=== PATIENT | male | born 1975 | race Two or more races ===

== ENCOUNTER 2017-02-24 10:35 | Emergency (ER) | payer MEDICAID, OTHER ==
[~2017-02-24] VITALS: Ht 165.1 cm; Wt 70.0 kg
[2017-02-24] MEDS ORDERED: ATOR10TA PO (10:39)
[2017-02-24] MEDS ORDERED: WARF2TAB55 PO (10:39)
[2017-02-24 12:00] VITALS: BP 128/70
== END 2017-02-24 12:01 | disposition home or self-care (01) ==
LOC: ER 10:49
DX: H53.2 Diplopia (principal); H53.8 Other visual disturbances; E78.00 Pure hypercholesterolemia, unspecified; I10 Essential (primary) hypertension; I25.2 Old myocardial infarction; Z95.2 Presence of prosthetic heart valve; Z79.01 Long term (current) use of anticoagulants
CPT/HCPCS: 99283

== ENCOUNTER 2017-04-12 16:43 | Emergency (ER) | payer MEDICAID ==
[~2017-04-12] VITALS: Ht 160 cm; Wt 91.0 kg
[~2017-04-12 16:43] MED LIST: ATOR10TA PO; WARF2TAB55 PO
[2017-04-12 21:55] LABS: BASOPHILS % 0.6 % (0.0-2.0); EOSINOPHILS % 1.3 % (0.0-5.0); HEMATOCRIT. 45.4 % (42.0-52.0); HEMOGLOBIN. 15.6 g/dL (14.0-18.0); LYMPHOCYTES % 26.6 % (20.0-50.0); MEAN CORPUSCULAR HEMOGLOBIN 29.3 pg (28.0-32.0); MEAN CORPUSCULAR VOLUME 85.4 fL (80.0-94.0); MEAN PLATELET VOLUME 8.2 fl (7.4-10.4); MONOCYTES % 9.8 % (2.0-8.0); NEUTROPHILS % 61.7 % (40.0-76.0); PLATELET 167 x1000/uL (130-400); RED BLOOD CELL COUNT 5.31 mill/uL (4.7-6.1); RED CELL DISTRIBUTION WIDTH 14.7 % (11.6-14.6)
[2017-04-12 22:03] LABS: INR 1.7; PROTHROMBIN TIME 17.7 sec (9.4-11.6)
[2017-04-12 22:04] LABS: CARBON DIOXIDE 26 mEq/L (21-32); CHLORIDE 105 mEq/L (98-107)
[2017-04-13 00:11] LABS: *AMPHETAMINES SCREEN URINE NEGATIVE (NEGATIVE); *BARBITURATES SCREEN URINE NEGATIVE (NEGATIVE); *BENZODIAZEPINES SCREEN URINE NEGATIVE (NEGATIVE); *COCAINE SCREEN URINE NEGATIVE (NEGATIVE); CANNABINOID URINE SCREEN NEGATIVE (NEGATIVE); METHADONE URINE SCREEN NEGATIVE (NEGATIVE); OPIATES URINE SCREEN NEGATIVE (NEGATIVE); PHENCYCLIDINE URINE SCREEN NEGATIVE (NEGATIVE)
[2017-04-13 02:11] VITALS: BP 126/62
== END 2017-04-13 02:30 | disposition home or self-care (01) ==
LOC: ER 16:43
DX: H53.8 Other visual disturbances (principal); I10 Essential (primary) hypertension; E78.00 Pure hypercholesterolemia, unspecified; Z87.891 Personal history of nicotine dependence; Z79.01 Long term (current) use of anticoagulants
CPT/HCPCS: 36415; 70450; 80053; 80305; 85025; 85610; 93005; 99285

== ENCOUNTER 2020-12-06 20:40 | Inpatient (IN) | payer MEDICAID, OTHER ==
[~2020-12-06] VITALS: Ht 157.5 cm; Wt 88.9 kg
[~2020-12-06 20:40] MED LIST changes: +WARF-67 PO; -WARF2TAB55 PO
[2020-12-06] MEDS ORDERED: SODIUM CHLORIDE 0.9% 1,000 ML IV ONE (21:15)
[2020-12-06] MEDS ORDERED: ADENOSINE 3 MG/ML 2ML VIAL IV ONE (21:15)
[2020-12-06 21:52] LABS: HEMATOCRIT. 47.8 % (42.0-52.0); HEMOGLOBIN. 16.3 g/dL (14.0-18.0); MEAN CORPUSCULAR HEMOGLOBIN 29.9 pg (28.0-32.0); MEAN CORPUSCULAR VOLUME 87.6 fL (80.0-94.0); MEAN PLATELET VOLUME 8.9 fl (7.4-10.4); PLATELET 164 x1000/uL (130-400); RED BLOOD CELL COUNT 5.46 mill/uL (4.7-6.1)
[2020-12-06 22:00] LABS: CHLORIDE 102 mEq/L (98-107)
[2020-12-06 22:04] LABS: ETHANOL BLOOD < 10 mg/dL
[2020-12-06 22:05] LABS: D-DIMER 0.85 mg/L FEU (<0.50); INR 1.7; PROTHROMBIN TIME 17.1 sec (9.6-11.0)
[2020-12-06 22:08] LABS: CREATINE KINASE 351 IU/L (39-308)
[2020-12-06 22:44] LABS: PLATELET ESTIMATE NORMAL
[2020-12-06 23:16] LABS: CLARITY URINE CLEAR (CLEAR); COLOR URINE YELLOW (YELLOW); KETONES URINE 1+ (NEGATIVE); LEUKOCYTE ESTERASE URINE NEGATIVE (NEGATIVE); NITRITE URINE NEGATIVE (NEGATIVE); OCCULT BLOOD URINE TRACE (NEGATIVE); PH URINE 6.5 (4.5-8.0); PROTEIN URINE 2+ (NEGATIVE); SPECIFIC GRAVITY URINE 1.015 (1.005-1.030)
[2020-12-06 23:27] LABS: *AMPHETAMINES SCREEN URINE NEGATIVE (NEGATIVE); *BARBITURATES SCREEN URINE NEGATIVE (NEGATIVE); *BENZODIAZEPINES SCREEN URINE NEGATIVE (NEGATIVE); *COCAINE SCREEN URINE NEGATIVE (NEGATIVE); CANNABINOID URINE SCREEN NEGATIVE (NEGATIVE); METHADONE URINE SCREEN NEGATIVE (NEGATIVE); OPIATES URINE SCREEN NEGATIVE (NEGATIVE); PHENCYCLIDINE URINE SCREEN NEGATIVE (NEGATIVE)
[2020-12-07] MEDS ORDERED: ASPIRIN 81MG TABLET PO ONE (00:15)
[2020-12-07] MEDS ORDERED: CEFTRIAXONE 1 G PREMIX 50 ML IV ONE (00:15)
[2020-12-07] MEDS ORDERED: AZITHROMYCIN 500 MG in DEXT 5% WATER 250 ML IV SCH (01:00)
[2020-12-07] MEDS ORDERED: HEPARIN 25,000 UNITS PREMIX 250 ML IV SCH (05:15)
[2020-12-07] MEDS ORDERED: IPRATROPIUM/ALBUTEROL 0.5-3(2.5)MG/3ML NEB HHN PRN (05:15)
[2020-12-07] MEDS ORDERED: DEXT 5%/0.45% NACL KCL 20MEQ/L 1,000 ML IV ONE (05:15)
[2020-12-07] MEDS ORDERED: VANCOMYCIN 1 G PREMIX 200 ML IV SCH (05:15)
[2020-12-07] MEDS: PIPERACILLIN/TAZ 3.375G PREMIX 50 ML IV SCH ×2 (06:22→15:04)
[2020-12-07] MEDS: ACETAMINOPHEN 325MG TABLET PO PRN (06:58)
[2020-12-07] MEDS ORDERED: HEPARIN 25,000 UNITS PREMIX 250 ML IV PRN ×2 (07:30→08:00)
[2020-12-07] MEDS ORDERED: HEPARIN 5000 UNITS/ML VIAL IV PRN ×2 (07:30)
[2020-12-07 07:58] LABS: HEMATOCRIT. 43.7 % (42.0-52.0); HEMOGLOBIN. 14.6 g/dL (14.0-18.0); MEAN CORPUSCULAR HEMOGLOBIN 29.4 pg (28.0-32.0); MEAN CORPUSCULAR VOLUME 87.9 fL (80.0-94.0); MEAN PLATELET VOLUME 8.5 fl (7.4-10.4); PLATELET 109 x1000/uL (130-400); RED BLOOD CELL COUNT 4.97 mill/uL (4.7-6.1); RED CELL DISTRIBUTION WIDTH 13.9 % (11.6-14.6)
[2020-12-07] MEDS ORDERED: HEPARIN 5000 UNITS/ML VIAL IV NR (08:00)
[2020-12-07 08:07] LABS: CHLORIDE 104 mEq/L (98-107)
[2020-12-07 08:12] LABS: INR 1.5; PARTIAL THROMBOPLASTIN TIME 35.6 sec (23.4-31.0); PROTHROMBIN TIME 15.8 sec (9.6-11.0)
[2020-12-07 08:32] LABS: PLATELET ESTIMATE SLIGHTLY DECREASED
[2020-12-07] MEDS ORDERED: DEXTROSE 50% WATER 50ML SYRINGE IV PRN (14:15)
[2020-12-07] MEDS ORDERED: ADENOSINE 3 MG/ML 2ML VIAL IV ONE ×2 (16:15)
[2020-12-07] MEDS ORDERED: WARFARIN SODIUM 3MG TABLET PO NR (16:30)
[2020-12-07] MEDS: ENOXAPARIN 100MG/ML SYR SUBCUT SCH (16:47)
[2020-12-07 17:11] LABS: INR 1.4; PROTHROMBIN TIME 14.6 sec (9.6-11.0)
[2020-12-07] MEDS: BLOOD SUGAR DIAGNOSTIC STRIP TEST SCH ×2 (17:27→21:23)
[2020-12-07] MEDS: RIFAMPIN 300MG CAPSULE PO SCH (17:58)
[2020-12-07] MEDS: VANCOMYCIN 750 MG PREMIX 150 ML IV SCH (18:15)
[2020-12-07] MEDS: INSULIN LISPRO 100 UNITS/ML SUBCUT SCH ×2 (18:20→21:00)
[2020-12-07 20:40] VITALS: BP 105/62
[2020-12-07 21:00] VITALS: BP 104/65
[2020-12-07] MEDS: AMLODIPINE 5MG TABLET PO SCH (21:00)
[2020-12-07] MEDS ORDERED: ENOXAPARIN 30MG/0.3ML SYR SUBCUT SCH (21:00)
[2020-12-07] MEDS: ATORVASTATIN CALCIUM 10MG TABLET PO SCH (21:00)
[2020-12-07] MEDS: CARVEDILOL 3.125 MG TABLET PO SCH (21:00)
[2020-12-08] VITALS (96 sets, daily range): BP systolic 51–119; BP diastolic 22–87
[2020-12-08] MEDS ORDERED: SODIUM CHLORIDE 0.9% 1000ML BAG (SEPSIS BOLUS) IV NR
[2020-12-08] MEDS: ACETAMINOPHEN 325MG TABLET PO PRN ×3 (01:24→21:57)
[2020-12-08] MEDS ORDERED: SODIUM CHLORIDE 0.9% 1,000 ML IV NR (02:15)
[2020-12-08] MEDS: ONDANSETRON HCL 4MG/2ML INJ IV PRN ×2 (02:18→13:45)
[2020-12-08] MEDS: NOREPINEPHRINE 32 MG in DEXT 5% WATER 218 ML IV PRN (04:15)
[2020-12-08] MEDS: ENOXAPARIN 100MG/ML SYR SUBCUT SCH ×2 (05:14→20:33)
[2020-12-08 06:12] LABS: HEMATOCRIT. 40.5 % (42.0-52.0); HEMOGLOBIN. 13.9 g/dL (14.0-18.0); MEAN CORPUSCULAR HEMOGLOBIN 29.8 pg (28.0-32.0); MEAN CORPUSCULAR VOLUME 86.5 fL (80.0-94.0); MEAN PLATELET VOLUME 8.6 fl (7.4-10.4); PLATELET 115 x1000/uL (130-400); RED BLOOD CELL COUNT 4.68 mill/uL (4.7-6.1); RED CELL DISTRIBUTION WIDTH 13.8 % (11.6-14.6)
[2020-12-08 06:35] LABS: CHLORIDE 107 mEq/L (98-107)
[2020-12-08] MEDS: VANCOMYCIN 750 MG PREMIX 150 ML IV SCH (07:08)
[2020-12-08] MEDS: BLOOD SUGAR DIAGNOSTIC STRIP TEST SCH ×4 (08:19→20:35)
[2020-12-08] MEDS: RIFAMPIN 300MG CAPSULE PO SCH (08:24)
[2020-12-08] MEDS: INSULIN LISPRO 100 UNITS/ML SUBCUT SCH ×4 (08:25→20:35)
[2020-12-08] MEDS: CARVEDILOL 3.125 MG TABLET PO SCH ×2 (08:26→20:34)
[2020-12-08] MEDS: AMLODIPINE 5MG TABLET PO SCH ×2 (08:26→20:34)
[2020-12-08 09:43] LABS: INR 1.4; PROTHROMBIN TIME 15.1 sec (9.6-11.0)
[2020-12-08] MEDS ORDERED: LIDOCAINE HCL 1% 20ML VIAL (Pyxis) INJ ONE (10:10)
[2020-12-08 13:02] LABS: PLATELET ESTIMATE SLIGHTLY DECREASED
[2020-12-08] MEDS: VANCOMYCIN 1 G PREMIX 200 ML IV SCH ×2 (13:18→21:57)
[2020-12-08] MEDS: DIGOXIN 500MCG/2ML AMP IV SCH ×2 (13:18→20:36)
[2020-12-08] MEDS: GENTAMICIN 80MG PREMIX 100 ML IV SCH (16:37)
[2020-12-08] MEDS ORDERED: WARFARIN SODIUM 5MG TABLET PO NR (18:00)
[2020-12-08] MEDS: ATORVASTATIN CALCIUM 10MG TABLET PO SCH (20:34)
[2020-12-08] MEDS ORDERED: ZOLPIDEM TARTRATE 5MG TABLET PO PRN (21:00)
[2020-12-09] VITALS (77 sets, daily range): BP systolic 67–131; BP diastolic 43–82
[2020-12-09] MEDS: GENTAMICIN 80MG PREMIX 100 ML IV SCH ×3 (00:03→16:41)
[2020-12-09] MEDS: DIGOXIN 500MCG/2ML AMP IV SCH ×3 (01:40→17:10)
[2020-12-09] MEDS: VANCOMYCIN 1 G PREMIX 200 ML IV SCH (05:48)
[2020-12-09 06:38] LABS: CHLORIDE 102 mEq/L (98-107)
[2020-12-09 06:39] LABS: INR 1.6; PROTHROMBIN TIME 16.7 sec (9.6-11.0)
[2020-12-09 06:45] LABS: CREATINE KINASE 96 IU/L (39-308)
[2020-12-09 06:48] LABS: CREATINE KINASE MB FRACTION < 1.0 ng/mL (0.5-3.6)
[2020-12-09] MEDS: INSULIN LISPRO 100 UNITS/ML SUBCUT SCH ×5 (08:20→21:00)
[2020-12-09] MEDS: BLOOD SUGAR DIAGNOSTIC STRIP TEST SCH ×4 (08:21→21:00)
[2020-12-09] MEDS: CARVEDILOL 3.125 MG TABLET PO SCH ×2 (08:42→21:00)
[2020-12-09] MEDS: AMLODIPINE 5MG TABLET PO SCH ×2 (08:42→21:00)
[2020-12-09] MEDS: MIDODRINE HCL 5MG TABLET PO SCH ×3 (10:07→16:41)
[2020-12-09] MEDS: RIFAMPIN 300MG CAPSULE PO SCH ×2 (10:07→16:41)
[2020-12-09] MEDS: ENOXAPARIN 100MG/ML SYR SUBCUT SCH ×2 (10:08→22:42)
[2020-12-09] MEDS: ACETAMINOPHEN 325MG TABLET PO PRN (13:10)
[2020-12-09] MEDS: NOREPINEPHRINE 32 MG in DEXT 5% WATER 218 ML IV PRN (13:24)
[2020-12-09] MEDS: ONDANSETRON HCL 4MG/2ML INJ IV PRN (13:26)
[2020-12-09] MEDS ORDERED: VANCOMYCIN 1500MG in DEXTROSE 5% WATER 250ML IV SCH (14:00)
[2020-12-09] MEDS: NAFCILLIN SODIUM 2000MG in SODIUM CHLORIDE 0.9% 100ML IV SCH ×2 (15:13→19:50)
[2020-12-09] MEDS ORDERED: WARFARIN SODIUM 7.5MG TABLET PO NR (18:00)
[2020-12-09] MEDS: ATORVASTATIN CALCIUM 10MG TABLET PO SCH (22:41)
[2020-12-10] VITALS (60 sets, daily range): BP systolic 40–155; BP diastolic 22–120
[2020-12-10] MEDS: NAFCILLIN SODIUM 2000MG in SODIUM CHLORIDE 0.9% 100ML IV SCH ×7 (00:13→23:39)
[2020-12-10] MEDS: GENTAMICIN 80MG PREMIX 100 ML IV SCH ×4 (00:15→23:39)
[2020-12-10] MEDS: ONDANSETRON HCL 4MG/2ML INJ IV PRN ×2 (01:56→11:59)
[2020-12-10 07:28] LABS: HEMATOCRIT. 48.4 % (42.0-52.0); HEMOGLOBIN. 16.6 g/dL (14.0-18.0); MEAN CORPUSCULAR HEMOGLOBIN 29.7 pg (28.0-32.0); MEAN CORPUSCULAR VOLUME 86.5 fL (80.0-94.0); MEAN PLATELET VOLUME 9.4 fl (7.4-10.4); PLATELET 147 x1000/uL (130-400); RED CELL DISTRIBUTION WIDTH 14.1 % (11.6-14.6)
[2020-12-10 07:29] LABS: CHLORIDE 100 mEq/L (98-107)
[2020-12-10 07:50] LABS: GENTAMICIN RANDOM 1.6 ug/mL
[2020-12-10] MEDS: BLOOD SUGAR DIAGNOSTIC STRIP TEST SCH ×4 (08:02→20:55)
[2020-12-10] MEDS: INSULIN LISPRO 100 UNITS/ML SUBCUT SCH ×4 (08:06→21:13)
[2020-12-10 08:47] LABS: PLATELET ESTIMATE NORMAL
[2020-12-10] MEDS: CARVEDILOL 3.125 MG TABLET PO SCH ×2 (09:00→20:54)
[2020-12-10] MEDS: AMLODIPINE 5MG TABLET PO SCH ×2 (09:00→20:55)
[2020-12-10] MEDS: ENOXAPARIN 100MG/ML SYR SUBCUT SCH (09:36)
[2020-12-10] MEDS: MIDODRINE HCL 5MG TABLET PO SCH ×3 (09:37→16:36)
[2020-12-10] MEDS: RIFAMPIN 300MG CAPSULE PO SCH ×2 (09:37→16:37)
[2020-12-10 09:46] LABS: INR 3.9; PROTHROMBIN TIME 37.4 sec (9.6-11.0)
[2020-12-10] MEDS: NOREPINEPHRINE 32 MG in DEXT 5% WATER 218 ML IV PRN ×2 (12:16→21:25)
[2020-12-10] MEDS ORDERED: DEXT 5%/0.45% NACL 1000ML 1,000 ML IV SCH (14:15)
[2020-12-10] MEDS: DIGOXIN 500MCG/2ML AMP IV SCH (18:32)
[2020-12-10] MEDS: ATORVASTATIN CALCIUM 10MG TABLET PO SCH (20:55)
[2020-12-10 20:56] LABS: CHLORIDE 103 mEq/L (98-107)
[2020-12-10] MEDS: INSULIN GLARGINE UD 100 UNITS/ML SYR SUBCUT SCH (21:13)
[2020-12-10] MEDS: DEXT 5%/0.45% NACL KCL 20MEQ/L 1,000 ML IV SCH (21:25)
[2020-12-10 23:20] LABS: HEMATOCRIT. 53.2 % (42.0-52.0); HEMOGLOBIN. 18.5 g/dL (14.0-18.0); MEAN CORPUSCULAR HEMOGLOBIN 29.7 pg (28.0-32.0); MEAN CORPUSCULAR VOLUME 85.4 fL (80.0-94.0); PLATELET 201 x1000/uL (130-400); RED BLOOD CELL COUNT 6.23 mill/uL (4.7-6.1); RED CELL DISTRIBUTION WIDTH 14.1 % (11.6-14.6)
[2020-12-11] VITALS (98 sets, daily range): BP systolic 44–166; BP diastolic 12–115
[2020-12-11 02:50] LABS: PLATELET ESTIMATE NORMAL
[2020-12-11] MEDS: NAFCILLIN SODIUM 2000MG in SODIUM CHLORIDE 0.9% 100ML IV SCH ×6 (03:30→23:27)
[2020-12-11 06:20] LABS: CHLORIDE 99 mEq/L (98-107)
[2020-12-11 06:24] LABS: PROTHROMBIN TIME 52.8 sec (9.6-11.0)
[2020-12-11 07:14] LABS: INR 5.6
[2020-12-11] MEDS: BLOOD SUGAR DIAGNOSTIC STRIP TEST SCH ×4 (08:01→20:41)
[2020-12-11] MEDS: RIFAMPIN 300MG CAPSULE PO SCH (08:07)
[2020-12-11] MEDS: MIDODRINE HCL 5MG TABLET PO SCH ×3 (08:07→17:10)
[2020-12-11] MEDS: INSULIN LISPRO 100 UNITS/ML SUBCUT SCH ×4 (08:13→20:43)
[2020-12-11] MEDS: CARVEDILOL 3.125 MG TABLET PO SCH ×2 (08:13→20:43)
[2020-12-11] MEDS: AMLODIPINE 5MG TABLET PO SCH ×2 (08:13→20:43)
[2020-12-11] MEDS: GENTAMICIN 80MG PREMIX 100 ML IV SCH (09:10)
[2020-12-11] MEDS: DEXT 5%/0.45% NACL KCL 20MEQ/L 1,000 ML IV SCH ×2 (09:10→20:41)
[2020-12-11] MEDS: NOREPINEPHRINE 32 MG in DEXT 5% WATER 218 ML IV PRN (10:37)
[2020-12-11] MEDS: INSULIN GLARGINE UD 100 UNITS/ML SYR SUBCUT SCH ×2 (10:38→20:42)
[2020-12-11] MEDS: DIGOXIN 500MCG/2ML AMP IV SCH (17:10)
[2020-12-11] MEDS: ONDANSETRON HCL 4MG/2ML INJ IV PRN (17:10)
[2020-12-11] MEDS: ATORVASTATIN CALCIUM 10MG TABLET PO SCH (20:41)
[2020-12-12] VITALS (91 sets, daily range): BP systolic 52–128; BP diastolic 37–103
[2020-12-12] MEDS: NAFCILLIN SODIUM 2000MG in SODIUM CHLORIDE 0.9% 100ML IV SCH ×5 (03:36→18:42)
[2020-12-12] MEDS: ACETAMINOPHEN 325MG TABLET PO PRN (05:28)
[2020-12-12 06:42] LABS: BASOPHILS % 0.5 % (0.0-2.0); EOSINOPHILS % 0.6 % (0.0-5.0); HEMOGLOBIN. 17.1 g/dL (14.0-18.0); LYMPHOCYTES % 10.5 % (20.0-50.0); MEAN CORPUSCULAR HEMOGLOBIN 29.4 pg (28.0-32.0); MEAN PLATELET VOLUME 8.8 fl (7.4-10.4); MONOCYTES % 11.8 % (2.0-8.0); NEUTROPHILS % 76.6 % (40.0-76.0); PLATELET 238 x1000/uL (130-400); RED BLOOD CELL COUNT 5.81 mill/uL (4.7-6.1); RED CELL DISTRIBUTION WIDTH 14.4 % (11.6-14.6)
[2020-12-12 07:26] LABS: CHLORIDE 100 mEq/L (98-107)
[2020-12-12 07:30] LABS: INR 3.7
[2020-12-12] MEDS: BLOOD SUGAR DIAGNOSTIC STRIP TEST SCH ×3 (07:38→17:33)
[2020-12-12 07:47] LABS: DIGOXIN 0.8 ng/mL (0.9-2.0)
[2020-12-12] MEDS: AMLODIPINE 5MG TABLET PO SCH (08:48)
[2020-12-12] MEDS: CARVEDILOL 3.125 MG TABLET PO SCH (08:48)
[2020-12-12] MEDS: MIDODRINE HCL 5MG TABLET PO SCH ×3 (08:49→17:03)
[2020-12-12] MEDS: INSULIN LISPRO 100 UNITS/ML SUBCUT SCH ×3 (08:51→17:55)
[2020-12-12] MEDS ORDERED: POTASSIUM CHLORIDE 20MEQ TABLET SR PO NR (10:00)
[2020-12-12] MEDS: NOREPINEPHRINE 32 MG in DEXT 5% WATER 218 ML IV PRN (10:40)
[2020-12-12] MEDS ORDERED: INSULIN GLARGINE UD 100 UNITS/ML SYR SUBCUT SCH (11:00)
[2020-12-12] MEDS: DEXT 5%/0.45% NACL KCL 20MEQ/L 1,000 ML IV SCH (12:10)
[2020-12-12] MEDS ORDERED: SODIUM CHLORIDE 0.9% 500 ML IV ONE (15:00)
[2020-12-12] MEDS: DIGOXIN 500MCG/2ML AMP IV SCH (17:04)
[2020-12-12] MEDS ORDERED: WARFARIN SODIUM 2MG TABLET PO SCH (18:00)
[2020-12-12] MEDS ORDERED: IOHEXOL-300 100 ML BOTTLE ONE (20:03)
== END 2020-12-12 21:15 | disposition short-term general hospital (02) | DRG 206 ==
LOC: ER 20:49 → 6WST 12-07 00:10 → EDBEDREQSVC 12-07 00:13 → EDBEDREQ 12-07 00:13 → EDBEDREQTM 12-07 00:13 → EDBEDREQDT 12-07 00:13 → ENRESERV 12-07 19:02 → CVICU 12-08 01:40
PROVIDERS: ADMIT Internal Medicine Pulmonary Disease; ATTEND Internal Medicine Pulmonary Disease
PROC: 02HV33Z Insertion of Infusion Device into Superior Vena Cava, Percutaneous Approach (ICD-10-PCS; principal; 2020-12-08)
PROC: B548ZZA Ultrasonography of Superior Vena Cava, Guidance (ICD-10-PCS; 2020-12-08)
DX: T82.6XXA Infection and inflammatory reaction due to cardiac valve prosthesis, initial encounter (principal); A41.01 Sepsis due to Methicillin susceptible Staphylococcus aureus; D69.6 Thrombocytopenia, unspecified; E87.2 Acidosis; N17.9 Acute kidney failure, unspecified; E87.1 Hypo-osmolality and hyponatremia; I38 Endocarditis, valve unspecified; I47.1 Supraventricular tachycardia; D64.9 Anemia, unspecified; E11.9 Type 2 diabetes mellitus without complications; E78.5 Hyperlipidemia, unspecified; I10 Essential (primary) hypertension; E66.9 Obesity, unspecified; K76.0 Fatty (change of) liver, not elsewhere classified; Z20.822 Contact with and (suspected) exposure to COVID-19; E78.00 Pure hypercholesterolemia, unspecified; I25.2 Old myocardial infarction; Z87.891 Personal history of nicotine dependence; Z68.35 Body mass index [BMI] 35.0-35.9, adult; B96.89 Other specified bacterial agents as the cause of diseases classified elsewhere; Y92.89 Other specified places as the place of occurrence of the external cause; Y83.1 Surgical operation with implant of artificial internal device as the cause of abnormal reaction of the patient, or of later complication, without mention of misadventure at the time of the procedure
CPT/HCPCS: 36415; 71045; 74178; 76705; 76937; 80048; 80053; 80076; 80162; 80170; 80202; 80305; 80320; 81003; 82550; 82553; 82728; 82962; 83605; 83615; 83880; 84145; 84484; 85025; 85379; 85384; 85651; 86140; 86592; 86850; 86900; 87077; 87186; 87426; 93005; 93306; 99291; C1725; J0153; J0456; J0696; J1160; J1580; J1644; J1650; J1815; J2405; J2543; J3370; J3490; J7030; J7040; J7050; J7060; Q9967; G0480